=== PATIENT | male | born 2000 | race Caucasian/White ===

== ENCOUNTER 2025-09-21 20:27 | Inpatient (IN) | payer OTHER, MEDICAID ==
[~2025-09-21] VITALS: Ht 172.7 cm; Wt 108.4 kg
[2025-09-21 20:30] VITALS: O2SAT 100
[2025-09-21] MEDS: SODIUM CHLORIDE 0.9% 1,000 ML IV ONE (21:02)
[2025-09-21] MEDS: ACETAMINOPHEN 1000MG/100ML 100 ML IV ONE (21:06)
[2025-09-21 21:24] LABS: BASOPHILS % 0.1 % (0.0-2.0); EOSINOPHILS % 0.1 % (0.0-5.0); HEMATOCRIT. 46.0 % (42.0-52.0); HEMOGLOBIN. 16.0 g/dL (14.0-18.0); LYMPHOCYTES % 19.9 % (20.0-50.0); MEAN PLATELET VOLUME 8.8 fl (7.4-10.4); MONOCYTES % 10.6 % (2.0-8.0); NEUTROPHILS % 69.3 % (40.0-76.0); PLATELET 254 x1000/uL (130-400); RED BLOOD CELL COUNT 5.41 mill/uL (4.7-6.1); RED CELL DISTRIBUTION WIDTH 12.0 % (11.6-14.6)
[2025-09-21 21:41] LABS: CREATININE 1.0 mg/dL (0.6-1.3); UREA NITROGEN BLOOD 11 mg/dL (9-23)
[2025-09-21 21:42] LABS: TROPONIN I HIGH SENSITIVITY < 4 ng/L (3.0-53)
[2025-09-21 21:43] LABS: ASPARTATE AMINOTRANSFERASE 28 IU/L (<34); BILIRUBIN DIRECT 0.1 mg/dL (<=3.0); BILIRUBIN TOTAL 0.4 mg/dL (0.1-1.0)
[2025-09-21 21:44] LABS: PROTEIN TOTAL 8.2 g/dL (6.0-8.3)
[2025-09-21 23:00] LABS: INR 1.1
[2025-09-22 00:07] LABS: TROPONIN I HIGH SENSITIVITY < 4 ng/L (3.0-53)
[2025-09-22] MEDS ORDERED: IOHEXOL-350 100 ML BOTTLE ONE (03:32)
[2025-09-22 03:33] VITALS: BP 129/81; PULSE 99; RESP 18; TEMP 36.418
[2025-09-22 03:37] LABS: CLARITY URINE CLEAR (CLEAR); COLOR URINE YELLOW (YELLOW); GLUCOSE URINE NEGATIVE (NEGATIVE); KETONES URINE NEGATIVE (NEGATIVE); LEUKOCYTE ESTERASE URINE NEGATIVE (NEGATIVE); NITRITE URINE NEGATIVE (NEGATIVE); OCCULT BLOOD URINE NEGATIVE (NEGATIVE); PH URINE 6.0 (4.5-8.0); PROTEIN URINE NEGATIVE (NEGATIVE); SPECIFIC GRAVITY URINE 1.010 (1.005-1.030); UROBILINOGEN URINE 0.2 E.U./dL (0.2-1.0)
[2025-09-22 04:34] LABS: *AMPHETAMINES SCREEN URINE NEGATIVE (NEGATIVE)
[2025-09-22 04:35] LABS: *BARBITURATES SCREEN URINE NEGATIVE (NEGATIVE); *BENZODIAZEPINES SCREEN URINE NEGATIVE (NEGATIVE); *COCAINE SCREEN URINE NEGATIVE (NEGATIVE); CANNABINOID URINE SCREEN NEGATIVE (NEGATIVE); ECSTASY MDMA SCREEN URINE NEGATIVE (NEGATIVE); METHADONE URINE SCREEN NEGATIVE (NEGATIVE); OPIATES URINE SCREEN NEGATIVE (NEGATIVE); PHENCYCLIDINE URINE SCREEN NEGATIVE (NEGATIVE)
[2025-09-22] MEDS: ACETAMINOPHEN 325MG TABLET PO PRN (04:46)
[2025-09-22 08:00] VITALS: BP 131/76; PULSE 91; RESP 18; TEMP 37; O2SAT 97
[2025-09-22 09:14] LABS: HEMATOCRIT. 43.9 % (42.0-52.0); HEMOGLOBIN. 14.9 g/dL (14.0-18.0); MEAN PLATELET VOLUME 8.7 fl (7.4-10.4); PLATELET 206 x1000/uL (130-400); RED BLOOD CELL COUNT 5.11 mill/uL (4.7-6.1); RED CELL DISTRIBUTION WIDTH 12.2 % (11.6-14.6)
[2025-09-22 09:33] LABS: CREATININE 0.7 mg/dL (0.6-1.3); TRIGLYCERIDE 84 mg/dL (0-150); UREA NITROGEN BLOOD 6 mg/dL (9-23)
[2025-09-22 09:34] LABS: LDL CHOLESTEROL 87 mg/dL (5-100)
[2025-09-22 09:35] LABS: ASPARTATE AMINOTRANSFERASE 23 IU/L (<34); BILIRUBIN TOTAL 0.4 mg/dL (0.1-1.0); PROTEIN TOTAL 7.2 g/dL (6.0-8.3)
[2025-09-22 10:06] LABS: HEPATITIS C AB NON REACTIVE (Neg) (Negative)
[2025-09-22] MEDS ORDERED: IPRATROPIUM/ALBUTEROL 0.5-3(2.5)MG/3ML NEB HHN PRN (11:30)
[2025-09-22] MEDS ORDERED: DOCUSATE SODIUM 100MG CAPSULE PO PRN (11:30)
[2025-09-22] MEDS ORDERED: CLONIDINE 0.1MG TABLET PO PRN (11:30)
[2025-09-22] MEDS ORDERED: ONDANSETRON HCL 4MG/2ML INJ IV PRN (11:30)
[2025-09-22 12:00] VITALS: BP 122/72; PULSE 98; RESP 18; TEMP 36.7; O2SAT 97
[2025-09-22 16:00] VITALS: BP 124/69; PULSE 99; RESP 18; TEMP 36.2; O2SAT 98
[2025-09-22 16:34] LABS: TROPONIN I HIGH SENSITIVITY < 4 ng/L (3.0-53)
[2025-09-22] MEDS: SODIUM CHLORIDE 0.9% 1,000 ML IV SCH (19:21)
[2025-09-22 20:00] VITALS: BP 131/70; PULSE 99; RESP 18; TEMP 36.6; O2SAT 95
[2025-09-22 20:52] LABS: BAND% 1.0 % (1.0-6.0); LYMPHOCYTES % MANUAL 32.0 % (20.0-50.0); MONOCYTES % MANUAL 23.0 % (2.0-8.0); NEUTROPHILS % MANUAL 44.0 % (45.0-75.0); PLATELET ESTIMATE NORMAL
[2025-09-22] MEDS: ENOXAPARIN 30MG/0.3ML SYR SUBCUT SCH (21:18)
[2025-09-23] VITALS: BP 149/77; PULSE 105; RESP 18; TEMP 36.3; O2SAT 96
[2025-09-23 01:13] LABS: TROPONIN I HIGH SENSITIVITY < 4 ng/L (3.0-53)
[2025-09-23 04:00] VITALS: BP 132/74; PULSE 100; RESP 18; TEMP 36.4; O2SAT 97
[2025-09-23 08:00] VITALS: BP 121/78; PULSE 100; RESP 19; TEMP 37.1; O2SAT 98
[2025-09-23 12:00] VITALS: BP 132/64; PULSE 100; RESP 19; TEMP 37.1; O2SAT 98
[2025-09-23 12:06] LABS: BASOPHILS % 0.3 % (0.0-2.0); EOSINOPHILS % 0.0 % (0.0-5.0); HEMATOCRIT. 43.9 % (42.0-52.0); HEMOGLOBIN. 15.0 g/dL (14.0-18.0); LYMPHOCYTES % 25.2 % (20.0-50.0); MEAN PLATELET VOLUME 9.1 fl (7.4-10.4); MONOCYTES % 10.7 % (2.0-8.0); NEUTROPHILS % 63.8 % (40.0-76.0); PLATELET 208 x1000/uL (130-400); RED BLOOD CELL COUNT 5.13 mill/uL (4.7-6.1); RED CELL DISTRIBUTION WIDTH 12.2 % (11.6-14.6)
[2025-09-23 12:27] LABS: CREATININE 0.7 mg/dL (0.6-1.3)
[2025-09-23 12:28] LABS: UREA NITROGEN BLOOD < 5 mg/dL (9-23)
[2025-09-23 16:00] VITALS: BP 128/74; PULSE 100; RESP 20; O2SAT 98
[2025-09-23 20:00] VITALS: BP 129/89; PULSE 100; RESP 20; TEMP 37; O2SAT 96
[2025-09-24] VITALS: BP 108/74; PULSE 99; RESP 20; TEMP 36.3; O2SAT 86
[2025-09-24 04:00] VITALS: BP 120/82; PULSE 100; RESP 20; TEMP 36.4; O2SAT 92
[2025-09-24 08:00] VITALS: BP 130/74; PULSE 108; RESP 18; TEMP 37.3; O2SAT 97
[2025-09-24 12:00] VITALS: BP 130/73; PULSE 85; RESP 19; TEMP 37.4; O2SAT 97
[2025-09-26 04:12] LABS: CHLAMYDIA TRACHOMATIS NAA Negative (Negative); NEISSERIA GONORRHOEAE NAA Negative (Negative)
== END 2025-09-24 17:35 | disposition left against medical advice (07) | DRG 74 ==
LOC: ER 20:27 → 6WST 09-22 00:22 → EDBEDREQDT 09-22 00:26 → EDBEDREQTM 09-22 00:26 → EDBEDREQ 09-22 00:26 → ENRESERV 09-22 02:10
PROVIDERS: ADMIT Internal Medicine; ATTEND Internal Medicine
DX: G90.89 Other disorders of autonomic nervous system (principal); B34.9 Viral infection, unspecified; E66.01 Morbid (severe) obesity due to excess calories; D72.821 Monocytosis (symptomatic); D72.829 Elevated white blood cell count, unspecified; R51.9 Headache, unspecified; R53.81 Other malaise; Z53.29 Procedure and treatment not carried out because of patient's decision for other reasons; Z68.36 Body mass index [BMI] 36.0-36.9, adult
CPT/HCPCS: 36415; 71045; 71275; 80048; 80053; 80061; 80076; 80305; 80320; 81003; 83735; 83880; 84145; 84443; 84484; 85025; 85379; 85651; 86141; 86705; 87340; 87491; 87591; 93005; 93306; 99291; A4606; J1650; J7030; Q9967; G0480; J0131